=== PATIENT | female | born 1970 | race Caucasian/White ===

== ENCOUNTER 2020-11-02 05:32 | Observation (INO) | payer OTHER, SELFPAY ==
[2020-11-02] VITALS (24 sets, daily range): BP systolic 115–154; BP diastolic 58–100; PULSE 65–92; RESP 12–18; TEMP 36.4–43; O2SAT 90–98; BMI 25.0; BMI 23.7
--- NOTE | 2020-11-02 05:55 | CT_ITS ---
PROCEDURE: CT ABDOMEN PELVIS WO CON CLINICAL INDICATION: abd pain Nausea vomiting and right flank pain COMPARISON: No exams were available for comparison TECHNIQUE: Axial images obtained with sagittal and coronal reformats. All CT scans at the facility use one or more dose reduction, viz: automated exposure control, ma/kV adjustment per patient size (including targeted exams where dose is matched to indication, i.e. head), or iterative reconstruction technique. FINDINGS: LOWER THORAX: There is consolidation/volume loss in both lower lobes posteriorly. There is minimal pericardial thickening ABDOMEN & PELVIS: Prior cholecystectomy. The liver, spleen, adrenal glands, pancreas, and kidneys have an unremarkable appearance. No renal or ureteral calculi. There is a retro cecal appendix which is thickened extending superiorly posterior to the cecum and descending colon. At the tip of the appendix superiorly there is lobular soft tissue density measuring 2.2 by 2 cm. This could represent a small periappendiceal abscess. No free air is evident. There is thickening of the pericolic gutter and lateral conal fascia with suspected small amount fluid in these regions. There is a mild amount of retained colonic feces. There is colonic diverticulosis but no evidence of diverticulitis. No intestinal obstruction. Mild degenerative changes are present in the lumbar spine. IMPRESSION: 1. Acute appendicitis involving a retrocecal appendix. Lobular soft tissue density noted towards the tip of the appendix which may be due to small Heidy appendiceal abscess or phlegmonous change. 2. Small amount of fluid with thickening of the lateral conal fascia and the pericolic gutter. 3. Bibasilar consolidation/volume loss in the lower lobes posteriorly. Dictated by: Nakul Garcia MD 11/02/2020 06:49 Nakul Garcia MD in [place] 11/02/2020 06:49
[2020-11-02 06:16] LABS: Microscopic, Urine URINE MICROSCOPIC (MICROSCOPIC)
[2020-11-02 06:21] LABS: Basophils # 0.1 K/mm3 (0-0.2); Basophils % 0.6 % (0.1-2.0); Eosinophils # 0.2 K/mm3 (0.0-0.4); Eosinophils % 1.2 % (0.1-12.0); Hematocrit 39.9 % (37.0-47.0); Hemoglobin 13.1 g/dL (12.2-16.2); Lymphocytes # 0.9 K/mm3 (0.7-4.5); Lymphocytes % 6.8 % (10-50); Mean Corpuscular HGB Conc 32.8 g/dL (31.8-35.4); Mean Corpuscular Volume 94.5 fl (81-99); Mean Platelet Volume 8.5 fl (7.4-10.4); Monocytes # 0.5 K/mm3 (0.1-1.0); Monocytes % 4.1 % (1.7-9.3); Neutrophils # 11.1 K/mm3 (1.8-7.8); Neutrophils % 87.3 % (37.0-80.0); Platelet Count 277 K/mm3 (142-424); Red Blood Count 4.23 M/mm3 (4.20-5.40); Red Cell Distribution Width 14.9 % (11.5-17.5); White Blood Count 12.7 K/mm3 (4.8-10.8)
[2020-11-02 06:24] LABS: Appearance,Urine CLEAR (Clear); Bilirubin,Urine Negative (Negative); Blood, Urine Negative (Negative); Color,Urine YELLOW (Yellow); Glucose,Urine (UA) Negative (Negative); Ketones,Urine Negative (Negative); Leukocyte Esterase,Urine Negative (Negative); Nitrate,Urine Negative (Negative); PH,Urine 6.5 (5.0-8.5); Protein,Urine Negative (Negative); Specific Gravity, Urine <= 1.005 (1.005-1.030)
[2020-11-02 06:26] LABS: Urine Pregnancy, HCG Qual. Negative (Negative)
[2020-11-02 06:28] LABS: MANUAL DIFFERENTIAL MANUAL DIFFERENTIAL (MANUAL DIFF)
[2020-11-02 06:32] LABS: Alanine Aminotransferase 32 U/L (12-78); Albumin Level 4.4 g/dl (3.5-5.0); Albumin/Globulin Ratio 0.9 (1.1-1.8); Alkaline Phosphatase 74 U/L (38-126); Amylase 61 U/L (30-110); Anion Gap 8.9 mEq/L (5-15); Aspartate Amino Transferase 52 U/L (14-36); Blood Urea Nitrogen 15 mg/dl (7-17); Calcium 9.2 mg/dl (8.4-10.2); Carbon Dioxide 30 mmol/L (22.0-30.0); Chloride 103 mmol/L (98-107); Creatinine Clearance Estimated 108 mL/min (50-200); Estimated Glomerular Filt Rate 89 ml/min (>60); GFR (African American) 108 ML/MIN (>60); Globulin 4.9 g/dL (1.3-3.2); Glucose 100 mg/dl (74-100); Lipase 17 U/L (23-300); Potassium 4.9 mmoL/L (3.5-5.1); Sodium 137 mmol/L (136-145); Total Protein,Serum 9.3 g/dl (6.3-8.2)
--- NOTE | 2020-11-02 06:36 | HMH.EDUROGF ---
ED Disposition Clinical Impression: Appendicitis, acute Qualifiers: Acute appendicitis type: unspecified acute appendicitis type Qualified Code(s): K35.80 - Unspecified acute appendicitis Disposition: Admitted As Inpatient Condition on Discharge: Good Instructions: DI for Urinary Tract Infection (UTI), DI for Urinary Tract Infection in Children Referrals: Kojo Devine [Primary Care Provider] - - Critical Care Critical Care Time: No Attestation: On 11/02/20, the high probability of a clinically significant, sudden or life threatening deterioration of the following system(s) required my full and direct attention, intervention and personal management. The time I documented below is in addition to time spent performing reported procedures but includes the following listed in this critical care notation. Medical Decision Making - Medical Records Medical records reviewed: Yes: I reviewed the patient's medical records. - Chris Inquiry Pt receiving controlled substance: No Vital Signs: 11/02/20 05:43 Temperature 98.8 F Temperature Source Oral Pulse Rate [Right] 92 H Respiratory Rate 16 Blood Pressure [Right Arm] 154/94 H Blood Pressure Mean [Right Arm] 114 Blood Pressure Source [Right Arm] Automatic Cuff Blood Pressure Position [Right Arm] Sitting 02 Sat by Pulse Oximetry 96 Oxygen Delivery Method Room Air - Lab Data Lab results reviewed: Yes: I reviewed the patient's lab results. Lab Results 11/02/20 06:07: WBC 12.7 H, RBC 4.23, Hgb 13.1, Hct 39.9, MCV 94.5, MCH 31.0, MCHC 32.8, RDW 14.9, Plt Count 277, MPV 8.5, Neut % (Auto) 87.3 H, Lymph % (Auto) 6.8 L, [place] % (Auto) 4.1, Eos % (Auto) 1.2, Baso % (Auto) 0.6, Neut # (Auto) 11.1 H, Lymph # (Auto) 0.9, [place] # (Auto) 0.5, Eos # (Auto) 0.2, Baso # (Auto) 0.1 11/02/20 06:07: Sodium 137, Potassium 4.9, Chloride 103, Carbon Dioxide 30, Anion Gap 8.9, BUN 15, Creatinine 0.70, Estimated Creat Clear 108, Estimated GFR 89, Est GFR ( Amer) 108, Glucose 100, Calcium 9.2, Total Bilirubin 1.0, AST 52 H, ALT 32, Alkaline Phosphatase 74, C-Reactive Protein 171.3 H, Total Protein 9.3 H, Albumin 4.4, Globulin 4.9 H, Albumin/Globulin Ratio 0.9 L, Amylase 61, Lipase 17 L 11/02/20 06:07: ESR 57 H 11/02/20 06:07: Procalcitonin 0.167 11/02/20 06:07: Urine Color Yellow, Urine Appearance Clear, Urine pH 6.5, Ur Specific [place] <= 1.005, Urine Protein Negative, Urine Glucose (UA) Negative, Urine Ketones Negative, Urine Blood Negative, Urine Nitrate Negative, Urine Bilirubin Negative, Urine Urobilinogen 1.0, Ur Leukocyte Esterase Negative, Urine RBC Occasional, Urine WBC 3-5, Ur Squamous Epith Cells 3-5 11/02/20 06:07: Urine HCG, Qual Negative Result diagrams: 11/02/20 06:07 11/02/20 06:07 Orders (Tests/Meds): ED MEDICATIONS Generic Name Dose Route Start Last Admin Trade Name Freq PRN Reason Stop Dose Admin Sodium Chloride 1,000 mls @ 999 mls/hr 11/02/20 06:00 11/02/20 05:59 Sod Chlor 0.9% 1000ml Bag IV 11/02/20 07:00 999 mls/hr .Q1H1M HEAVEN Administration Discontinued Medications Generic Name Dose Route Start Last Admin Trade Name Freq PRN Reason Stop Dose Admin Ketorolac Tromethamine 30 mg 11/02/20 05:57 11/02/20 05:59 Ketorolac 30mg/Ml Vial IV 11/02/20 05:58 30 mg ONCE ONE Administration Ondansetron HCl 4 mg 11/02/20 05:57 11/02/20 05:59 Ondansetron 4mg/2ml Vial IV 11/02/20 05:58 4 mg ONCE ONE Administration ORDERS Category Date Time Status Complete Blood Count Auto Diff Stat Lab 11/02/20 06:07 Results Covid-19 IgG/IgM ([facility]) Stat Lab 11/02/20 06:54 Ordered - CT Data CT Scan: Abdomen, Pelvis Time Received: 06:[address] Reviewed: Yes: I have viewed the radiologist's interpretation Preliminary Findings: Abnormal (acute appendicitis) - Physician Consults Physician Consulted: allran Reason -: Admission Female Urogenital HPI - General Chief complaint: Urogenital-Female Stated complaint: N/V,stomach sore Chandana
[2020-11-02 06:37] LABS: C-Reactive Protein 171.3 mg/L (0-4)
[2020-11-02 06:45] LABS: RBC,Urine Occasional #/hpf (0-3)
--- NOTE | 2020-11-02 06:50 | PC.NURSE ---
paged cushion sewer surgeon @ this time
[2020-11-02 06:51] LABS: Procalcitonin 0.167 ng/mL (0.0-2.0)
[2020-11-02 07:04] LABS: Erythrocyte Sedimentation Rate 57 mm/hr (0-20)
--- NOTE | 2020-11-02 07:06 | PC.NURSE ---
on phone with dr diamond
[2020-11-02 07:09] LABS: Eosinophils % 1 % (0-3); Lymphocytes % 21 % (10-50); Monocytes % 4 % (2-9); Neutrophils % 74 % (42-76); RBC Morphology Normal; Total Cells Counted 100
[2020-11-02 07:10] LABS: Platelet Estimate Normal
--- NOTE | 2020-11-02 07:12 | PC.NURSE ---
House and Care Management aware of admission.
[2020-11-02 07:52] LABS: Coronavirus 19 IgG Antibody Negative (Negative); Coronavirus 19 IgM Antibody Negative (Negative)
--- NOTE | 2020-11-02 08:26 | PC.NURSE ---
Pt arrived to the floor at this time. via w/c
--- NOTE | 2020-11-02 09:04 | P.CONPHA_ITS ---
[facility] Pharmacy VTE Monitoring - Patient Demographics Admission date: 11/02/20 Report Date: 11/02/20 Time: 09:04 Allergies/Adverse Reactions: Patient Allergies No Known Allergies Allergy (Verified 11/02/20 05:53) Height: 1.68 m Weight: 66.763 kg Patient Problems: Current Active Problems Appendicitis, acute (Acute) - VTE Risk Labs: VTE Related Lab Results Hgb 13.1 g/dL (12.2-16.2) 11/02/20 06:07 Hct 39.9 % (37.0-47.0) 11/02/20 06:07 Plt Count 277 K/mm3 (142-424) 11/02/20 06:07 BUN 15 mg/dl (7-17) 11/02/20 06:07 Creatinine 0.70 mg/dl (0.52-1.04) 11/02/20 06:07 Estimated Creat Clear 108 mL/min (50-200) 11/02/20 06:07 Clinical Trial Participant: No - Prophylaxis VTE Prophylaxis Ordered?: Yes Types of VTE Prophylaxis: TEDS Knee High Location of Applied Device: Bilateral Lower Extremeties
--- NOTE | 2020-11-02 09:29 | HMH.GSHP ---
HPI HPI: Patient is a 50-year-old female from [place]. She states that on Sunday evening, 10/31/2020, she developed right lower quadrant and right flank pain and tenderness. She did have some associated dysuria. This persisted and progressed and she presented to the emergency department. She was seen and evaluated and found to have a mild leukocytosis. She has CT scan performed which revealed findings consistent with acute appendicitis with retrocecal appendix. Surgery was contacted and patient was admitted. [place] History I have reviewed the patient's past medical history: Yes Medical History: Denies:: Cancer, Diabetes Mellitus Type 1, Diabetes Mellitus Type 2, MRSA *Have you ever received a pneumonia vaccine?: No *Have you received a flu vaccine this season?: No Other Surgeries: Yes: Cholecystectomy, Amputation: No - *Social History Last grade of school completed: 11th or 12th Smoking Status: Current every day smoker Tobacco Type: cigarettes # Packs/Day (cigarettes): 1 Alcohol Intake: never *Occupational Status:: employed Housing: house Household Members: significant other, children *Travel in the last 8 weeks: None Family Hx:: Diabetes, Heart Attack, Hyperlipidemia, Hypertension, Stroke Review of Systems - Review of Systems Review of systems:: pertinent systems reviewed and negative unless documented below - *Neurologic Denies localized weakness Meds Home Medications Medication Instructions Recorded Confirmed Type No Known Home Medications 11/02/20 11/02/20 History Allergies Allergy/AdvReac Type Severity Reaction Status Date / Time No Known Allergies Allergy Verified 11/02/20 05:53 Exam Vital signs and Labs for Last 24 Hours: Temp Pulse Resp BP Pulse Ox 98.5 F 75 18 131/74 97 11/02/20 08:38 11/02/20 08:38 11/02/20 08:38 11/02/20 08:38 11/02/20 08:38 Laboratory Results - last 24 hr 11/02/20 06:07: WBC 12.7 H, RBC 4.23, Hgb 13.1, Hct 39.9, MCV 94.5, MCH 31.0, MCHC 32.8, RDW 14.9, Plt Count 277, MPV 8.5, Neut % (Auto) 87.3 H, Lymph % (Auto) 6.8 L, [place] % (Auto) 4.1, Eos % (Auto) 1.2, Baso % (Auto) 0.6, Neut # (Auto) 11.1 H, Lymph # (Auto) 0.9, [place] # (Auto) 0.5, Eos # (Auto) 0.2, Baso # (Auto) 0.1, Total Counted 100, Neutrophils % (Manual) 74, Lymphocytes % (Manual) 21, Monocytes % (Manual) 4, Eosinophils % (Manual) 1, Platelet Estimate Normal, RBC Morphology Normal 11/02/20 06:07: Sodium 137, Potassium 4.9, Chloride 103, Carbon Dioxide 30, Anion Gap 8.9, BUN 15, Creatinine 0.70, Estimated Creat Clear 108, Estimated GFR 89, Est GFR ( Amer) 108, Glucose 100, Calcium 9.2, Total Bilirubin 1.0, AST 52 H, ALT 32, Alkaline Phosphatase 74, C-Reactive Protein 171.3 H, Total Protein 9.3 H, Albumin 4.4, Globulin 4.9 H, Albumin/Globulin Ratio 0.9 L, Amylase 61, Lipase 17 L 11/02/20 06:07: ESR 57 H 11/02/20 06:07: Procalcitonin 0.167 11/02/20 06:07: Urine Color Yellow, Urine Appearance Clear, Urine pH 6.5, Ur Specific [place] <= 1.005, Urine Protein Negative, Urine Glucose (UA) Negative, Urine Ketones Negative, Urine Blood Negative, Urine Nitrate Negative, Urine Bilirubin Negative, Urine Urobilinogen 1.0, Ur Leukocyte Esterase Negative, Urine RBC Occasional, Urine WBC 3-5, Ur Squamous Epith Cells 3-5 11/02/20 06:07: Urine HCG, Qual Negative 11/02/20 06:07: SARS-CoV-2 IgG Ab (Rapid) Negative, SARS-CoV-2 IgM Ab (Rapid) Negative I & O for Last 24 hours: Intake & Output 10/30/20 10/31/20 11/01/20 11/02/20 11:59 11:59 11:59 11:59 Intake Total 1000 / 1000 Balance 1000 / 1000 Weight 147 lb 3 oz - *Routine HEENT Exam Head: Present: normocephalic Eye: Present: EOMI, PERRL ENT: Present: mucous membranes moist - *Routine Neck Exam Present: supple. Absent: lymphadenopathy - *Routine Respiratory Exam Present: CTA bilaterally - *Routine Cardiovascular Exam Present: RRR - *Routine Abdominal Exam Present: soft, normoactive bowel sounds, tenderness Comments:
--- NOTE | 2020-11-02 10:05 | PC.NURSE ---
called and spoke with preop who stated they would relay to md about patient request for pain medication. patient rating pain a 10/10, had a dose at 0740, not due again until 1140
--- NOTE | 2020-11-02 10:37 | PC.NURSE ---
preop called back stating dr. diamond did not want to give anything else for pain at this time. preop stated they would be up in 15-20 minutes to get patient
--- NOTE | 2020-11-02 13:14 | HMH.ANESCL ---
[facility] Anesthesia Checklist - Structural Data Admitted From: Inpatient Planned Operative Procedure/s: lap appy Consent for Planned Operative Procedure(s) Verified: Yes - Airway Assessment C-Spine Mobility Assessed: Yes TMJ Mobility Assessed: Yes Dentition: Poor Dentition - Neurological Assessment Level of Consciousness: Awake, Alert, Appropriate - Anesthesia Plan Anesthesia Risk discussed: Yes Anesthesia Plan: Verified ASA Class: II Anesthesia Type: General [facility] History I have reviewed the patient's past medical history: Yes Medical History: Denies:: Cancer, Diabetes Mellitus Type 1, Diabetes Mellitus Type 2, MRSA *Have you ever received a pneumonia vaccine?: No *Have you received a flu vaccine this season?: No Anesthesia experience/problems:: none Other Surgeries: Yes: Cholecystectomy, Amputation: No - *Social History Last grade of school completed: 11th or 12th Smoking Status: Current every day smoker Tobacco Type: cigarettes # Packs/Day (cigarettes): 1 Alcohol Intake: never Substance Use Type: denies use *Occupational Status:: employed Housing: house Household Members: significant other, children *Travel in the last 8 weeks: None Family Hx:: Diabetes, Heart Attack, Hyperlipidemia, Hypertension, Stroke
--- NOTE | 2020-11-02 14:25 | HMH.OPNOTE ---
Date of procedure: 11/02/20 Pre-op Diagnosis:: Acute appendicitis Post-op Diagnosis:: Same Procedure performed:: Laparoscopic appendectomy Surgeon:: José Miguel Akers MD SENIOR ACCOUNTS PAYABLE SPECIALIST:: Irvin Bernard Anesthesia: GETA Estimated blood loss (mL): 15 Clinical Note:: Patient is a 50-year-old female from [place]. She began experiencing right lower quadrant and right flank pain on 10/31/2020. This progressed and became more severe. She did have some associated urinary symptoms. She presented to the emergency department in the very assistant accounting manager hours of 11/02/2020. She was found to have a mild leukocytosis. She underwent CT scan which revealed the following findings: Acute appendicitis involving a retrocecal appendix. Lobular soft tissue density noted towards the tip of the appendix which may be due to small Heidy appendiceal abscess or phlegmonous change. Small amount of fluid with thickening of the lateral conal fascia and the pericolic gutter. Surgery was contacted and patient was admitted for inpatient management of acute appendicitis with planned appendectomy. Operative findings:: Patient had a severely inflamed retrocecal appendix. It was suppurative. There is fibrinopurulent exudate with phlegmonous change in the right paracolic region. There may have been walled off perforation of appendix. Appendix was densely adherent to the right colon. Operative note:: Patient was taken to the operating room. She was given preoperative intravenous antibiotics. She was placed in a supine position. Hyde catheter was placed. Abdomen was prepped and draped in the standard surgical fashion. Infraumbilical incision was made and her previous laparoscopy scar. While performing abdominal wall lift Veress needle was inserted. CO2 pneumoperitoneum was achieved to 15 mmHg. 12 mm optical trocar was inserted at the umbilicus. Intraperitoneal contents were visualized. She was found to have significant adhesions in the pelvis from previous obstetric surgeries. There was evidence of cloudy fluid along the right paracolic gutter with some inflammatory exudate and fibrinopurulent exudate consistent with established peritonitis. 5 mm trocar was inserted in the lower abdomen avoiding the adhesions. Additional 5 mm trocar was inserted in the right upper abdomen. 5 mm 30 degree laparoscope was inserted through the right upper abdominal trocar site. Initial identification of the appendix was difficult. However ultimately the tip of the appendix was identified in the retrocecal location. The peritoneal attachments were divided laterally as the appendix was retrocecal. This mobilized the cecum somewhat medially. There was intense inflammatory response. Peritoneum was thickened. Careful dissection was carried out dissecting free the appendix from the retroperitoneum, lateral sidewall, and ascending colon. This was prolonged difficult dissection. The base of the appendix actually appeared relatively uninflamed. Mesoappendix was divided with SATISH ultrasonic harmonic sid. Dissection was carried down to the appendiceal base. The appendiceal artery was cauterized with SATISH ultrasonic robotic sid and divided. Dissection was carried down to the appendiceal base which was relatively uninflamed. The appendix was divided at its base with an endoscopic BAO linear cutting stapling device. The appendix was placed within an Endo Catch retrieval device and removed from the peritoneal cavity via the umbilical trocar site. Surgical dissection region was inspected. Thorough irrigation was performed. Irrigation was performed in the right paracolic gutter, pelvis, and perihepatic space. There was no evidence of any obvious colon Injury. There appeared to be good hemostasis. Trochars were then removed and CO2 pneumoperitoneum was evacuated. Fascia at the umbilicus was closed with several interrupted 0 Vicryl sutures. Local anesthetic was infiltrated. Skin incisions were clos
--- NOTE | 2020-11-02 14:33 | HMH.ANESI ---
[facility] Anesthesia Record Part I Intake, IV Amount: 1,500 Estimated blood loss (mL): 0 Urine output (mL): 200 Blood Pressure: 149/100 SaO2: 94 Pulse Rate: 87 Respiratory Rate: 12 Temperature: 99.5 F Patient is:: Awake, Stable Stable to PACU at:: 14:30
--- NOTE | 2020-11-02 22:02 | P.PN_ITS ---
[facility] Anesthesia Record Part II Discharge Time: 15:00 Destination: Medical Surgical Department PACU nurse assessment reviewed?: Yes Patient Condition:: Good Anesthesia Complications:: None Swallowing reflex intact?: Yes Cyanosis?: No Blood Pressure: 129/76 Pulse Rate: 71 Temperature: 97.6 F Mental Status: Alert & Oriented Pain level:: 0 Nausea and/or vomitting:: None Intake, IV Amount: 0
[2020-11-03] VITALS (9 sets, daily range): BP systolic 96–150; BP diastolic 50–79; PULSE 54–72; RESP 14–18; TEMP 36.7–36.8; O2SAT 91–96; BMI 24.0
--- NOTE | 2020-11-03 04:02 | PC.NURSE ---
PATIENT A&O X4, LUNGS CLEAR, PULSES EQUAL. PATIENT INCISION SITES C/D/I. PATIENT UP TO BATHROOM, TOLERATED WELL. PATIENT HAS TOLERATED CLEAR LIQUID DIET. NO NEW CONCERNS AT THIS TIME.
--- NOTE | 2020-11-03 07:06 | HMH.GSPN ---
Subjective Patient reports: feels better Progress Note: A&P Assessment and Plan for All Diagnoses:: Check CBC. Continue antibiotics. Exam Vital signs and Labs for Last 24 Hours: Temp Pulse Resp BP Pulse Ox 98.1 F 72 16 96/50 L 91 L 11/03/20 03:14 11/03/20 03:14 11/03/20 03:14 11/03/20 03:14 11/03/20 03:14 Laboratory Results - last 24 hr 11/02/20 06:07: Total Counted 100, Neutrophils % (Manual) 74, Lymphocytes % (Manual) 21, Monocytes % (Manual) 4, Eosinophils % (Manual) 1, Platelet Estimate Normal, RBC Morphology Normal 11/02/20 06:07: SARS-CoV-2 IgG Ab (Rapid) Negative, SARS-CoV-2 IgM Ab (Rapid) Negative I & O for Last 24 hours: Intake & Output 10/31/20 11/01/20 11/02/20 11/03/20 11:59 11:59 11:59 11:59 Intake Total 1000 / 1000 1740 / 1740 Balance 1000 / 1000 1740 / 1740 Weight 147 lb 3 oz 149 lb 6.269 oz - *Routine Abdominal Exam Present: soft Comments: Dressings dry.
[2020-11-03 07:45] LABS: Basophils % 0.1 % (0.1-2.0); Hematocrit 35.9 % (37.0-47.0); Hemoglobin 11.4 g/dL (12.2-16.2); Lymphocytes # 0.6 K/mm3 (0.7-4.5); Lymphocytes % 4.9 % (10-50); Mean Corpuscular HGB Conc 31.7 g/dL (31.8-35.4); Mean Corpuscular Hemoglobin 31.2 pg (27.0-31.2); Mean Corpuscular Volume 98.5 fl (81-99); Mean Platelet Volume 8.2 fl (7.4-10.4); Monocytes # 0.3 K/mm3 (0.1-1.0); Monocytes % 2.6 % (1.7-9.3); Neutrophils # 11.7 K/mm3 (1.8-7.8); Neutrophils % 92.5 % (37.0-80.0); Platelet Count 260 K/mm3 (142-424); Red Blood Count 3.64 M/mm3 (4.20-5.40); Red Cell Distribution Width 15.2 % (11.5-17.5); White Blood Count 12.6 K/mm3 (4.8-10.8)
[2020-11-03 07:48] LABS: MANUAL DIFFERENTIAL MANUAL DIFFERENTIAL (MANUAL DIFF)
[2020-11-03 07:56] LABS: Chloride 107 mmol/L (98-107); Potassium 4.3 mmoL/L (3.5-5.1); Sodium 141 mmol/L (136-145)
[2020-11-03 07:59] LABS: Anion Gap 10.3 mEq/L (5-15); Blood Urea Nitrogen 16 mg/dl (7-17); Carbon Dioxide 28 mmol/L (22.0-30.0); Creatinine Clearance Estimated 91 mL/min (50-200); Estimated Glomerular Filt Rate 76 ml/min (>60); GFR (African American) 92 ML/MIN (>60)
[2020-11-03 08:00] LABS: Calcium 8.9 mg/dl (8.4-10.2); Glucose 107 mg/dl (74-100)
[2020-11-03 08:37] LABS: Lymphocytes % 12 % (10-50); Monocytes % 4 % (2-9); Neutrophils % 83 % (42-76); Platelet Estimate Normal; RBC Morphology Normal; Total Cells Counted 100
--- NOTE | 2020-11-03 13:24 | PC.NURSE ---
CALLED LINDY'S OFFICE TO SEE IF PT COULD GET A NICOTINE PATCH AND SOMETHING FOR HEARTBURN. AWAITING CALL BACK.
--- NOTE | 2020-11-03 14:13 | PC.NURSE ---
A&OX4. PT HAS TOLERATED ROOM AIR WELL THROUGHOUT SHIFT. RESPIRATIONS REGULAR AND UNLABORED. LUNG SOUNDS BILATERALLY CLEAR. NO COUGH NOTED. ACTIVE BOWEL SOUNDS HEARD IN ALL 4 QUADRANTS. SOFT AND TENDER ABDOMEN. 3 INCISIONS NOTED TO ABDOMEN. DRESSING NEAR UMBILICAL AREA IS NOTED WITH A PIN DROP OF SCANT DRAINAGE. WILL CONTINUE TO MONITOR. OTHER 2 DRESSINGS ARE CDI. NO BM THUS FAR BUT PT REPORTS FLATUS BEING PASSED. PT AMBULATES TO RESTROOM W STANDBY ASSIST. PT REFUSED TEDS. NS INFUSING AT 100ML/HR. IV WENT BAD IN R FOREARM AND A NEW ONE WAS INSERTED IN HER R HAND. PT HAS REPORTED PAIN ONCE THUS FAR AND RECEIVED PAIN MEDS PER JAN. NO REPORTS OF NAUSEA THUS FAR. DAUGHTER HAS REMAINED AT BEDSIDE. NO EDEMA NOTED. HAND SENIOR SALES MANAGER EQUAL. +2 PULSES NOTED THROUGHOUT. PT IS CURRENTLY UP TO THE CHAIR WITH CALL LIGHT WITHIN REACH. BED IN LOWEST POSITION. VSS. WILL CONTINUE TO MONITOR.
--- NOTE | 2020-11-03 14:49 | PC.NURSE ---
CALLED LINDY'S OFFICE TO MAKE HIM AWARE OF PT NOT RECEIVING ANY ANTIBIOTICS SINCE SURGERY. AWAITING PHONE CALL.
--- NOTE | 2020-11-03 15:34 | PC.NURSE ---
CALLED [facility] OFFICE TO FOLLOW UP WIT PREVIOUS PHONE CALL ABOUT ANTIBIOTICS ON PT. THEY SAID UNISON 3GRAMS EVERY 6 HOURS IV NEEDS TO BE GIVEN. ORDER REPEATED BACK, WROTE, AND FAXED TO PHARMACY.
--- NOTE | 2020-11-03 18:37 | PC.NURSE ---
pt aware of new policy for visitation starting tomorrow.
[2020-11-04 03:27] VITALS: BP 138/76; PULSE 68; RESP 14; TEMP 36.6; O2SAT 95
--- NOTE | 2020-11-04 03:51 | PC.NURSE ---
Pt is a&ox4. Lung sounds remain clear and pt remains on RA with appropriate o2 sats. Bowel sounds active in all 4 quads, abdomen is soft and tender. No BM noted this shift. Pt has c/o abdominal pain x2 this shift and was medicated per MAR. Daughter has remained at bedside. No other acute changes or complaints at this time, will continue to monitor.
[2020-11-04 04:59] VITALS: BMI 259025.5
[2020-11-04 08:00] VITALS: BP 137/81; PULSE 69; RESP 18; TEMP 36.8; O2SAT 94
--- NOTE | 2020-11-04 08:22 | HMH.GSPN ---
Subjective Patient reports: feels better Progress Note: A&P Assessment and Plan for All Diagnoses:: Likely DC home on oral antibiotics. Check CBC. Exam Vital signs and Labs for Last 24 Hours: Temp Pulse Resp BP Pulse Ox 97.8 F 68 14 138/76 95 11/04/20 03:27 11/04/20 03:27 11/04/20 03:27 11/04/20 03:27 11/04/20 03:27 Laboratory Results - last 24 hr 11/03/20 07:18: Total Counted 100, Neutrophils % (Manual) 83 H, Band Neutrophils % 1.0, Lymphocytes % (Manual) 12, Monocytes % (Manual) 4, Platelet Estimate Normal, RBC Morphology Normal I & O for Last 24 hours: Intake & Output 11/01/20 11/02/20 11/03/20 11/04/20 11:59 11:59 11:59 11:59 Intake Total 1000 / 1000 2220 / 2220 3827 / 3827 Balance 1000 / 1000 2220 / 2220 3827 / 3827 Weight 147 lb 3 oz 149 lb 6.269 oz 160 lb 8 oz - *Routine Abdominal Exam Present: soft
[2020-11-04 08:38] LABS: Basophils % 0.4 % (0.1-2.0); Eosinophils # 0.2 K/mm3 (0.0-0.4); Hematocrit 38.1 % (37.0-47.0); Hemoglobin 12.1 g/dL (12.2-16.2); Lymphocytes # 1.4 K/mm3 (0.7-4.5); Lymphocytes % 18.6 % (10-50); Mean Corpuscular HGB Conc 31.7 g/dL (31.8-35.4); Mean Corpuscular Hemoglobin 30.9 pg (27.0-31.2); Mean Corpuscular Volume 97.7 fl (81-99); Mean Platelet Volume 7.7 fl (7.4-10.4); Monocytes # 0.3 K/mm3 (0.1-1.0); Monocytes % 3.3 % (1.7-9.3); Neutrophils # 5.8 K/mm3 (1.8-7.8); Neutrophils % 75.6 % (37.0-80.0); Platelet Count 270 K/mm3 (142-424); Red Cell Distribution Width 15.3 % (11.5-17.5); White Blood Count 7.6 K/mm3 (4.8-10.8)
--- NOTE | 2020-11-04 08:46 | [facility].DCSUM ---
General - General Admission date:: 11/02/20 Discharge date: 11/04/20 HPI HPI: Patient is a 50-year-old female from [place]. She states that on Sunday evening, 10/31/2020, she developed right lower quadrant and right flank pain and tenderness. She did have some associated dysuria. This persisted and progressed and she presented to the emergency department. She was seen and evaluated and found to have a mild leukocytosis. She has CT scan performed which revealed findings consistent with acute appendicitis with retrocecal appendix. Surgery was contacted and patient was admitted. Hospital Course Hospital Course: Patient was admitted to the medical surgical floor. Several hours after admission she was taken to the operating room at which time she underwent laparoscopic appendectomy. She was found to have a severely inflamed retrocecal suppurative appendix. This was able to be surgically taken care of laparoscopically despite the amount of inflammation. Please see operative dictation for complete details. She was admitted postoperatively for convalescence and recovery. She was given a clear liquid diet initially. The following day patient had requested nicotine patch due to her smoking history. She was given 14 mg nicotine patch. She did feel better. She was having some heartburn which was felt to be potentially from ileus. She was given Protonix. She was able to be advanced to a full liquid diet. She did have persistent leukocytosis on postoperative day #1 therefore she remained an inpatient. The following morning, on postoperative day #2, she felt much better. She was tolerating full liquid diet without issue. Heartburn had resolved. She underwent repeat CBC which revealed normalization of blood counts of 7000. She had remained afebrile throughout her hospital course. Arrangements were made for discharge home on postoperative day #2 with continuation of antibiotics orally. She was given a 5-day course of Augmentin. Objective Vital signs: Temp Pulse Resp BP Pulse Ox 98.2 F 69 18 137/81 94 L 11/04/20 08:00 11/04/20 08:00 11/04/20 08:00 11/04/20 08:00 11/04/20 08:00 Results Labs on day of discharge: Labs from last 24 hours 11/04/20 08:25 WBC 7.6 D RBC 3.90 L Hgb 12.1 L Hct 38.1 MCV 97.7 MCH 30.9 MCHC 31.7 L RDW 15.3 Plt Count 270 MPV 7.7 Neut % (Auto) 75.6 Lymph % (Auto) 18.6 [place] % (Auto) 3.3 Eos % (Auto) 2.0 Baso % (Auto) 0.4 Neut # (Auto) 5.8 Lymph # (Auto) 1.4 [place] # (Auto) 0.3 Eos # (Auto) 0.2 Baso # (Auto) 0.0 Discharge Plan - Patient Discharge Instructions ACTIVITY: No heavy lifting DIET: advance to your usual diet Patient Instructions: DI for Appendicitis -- Adult, DI for an Appendectomy, DI for Surgical Site Infection, Appendectomy -- Laparoscopic Surgery, Catheter-associated Urinary Tract Infection - Follow up Plan Follow up with: José Miguel Akers MD [Staff Physician] - Disposition: Home, Self-Intermediate Medications: Home Medications Medication Instructions Recorded Confirmed Type Amoxicillin/Potassium Clav 1 tab PO Q12H #10 tab 11/04/20 Rx [Augmentin 875-125 Tablet] Hydrocod/Acet 5/325 mg [[place] 1 - 2 tab PO Q6HP PRN #17 tab 20 Rx 5/325mg tablet] Prescriptions/Medication Reconciliation: New Amoxicillin/Potassium Clav [Augmentin 875-125 Tablet] 1 tab PO Q12H #10 tab Hydrocod/Acet 5/325 mg [[place] 5/325mg tablet] 1 - 2 tab PO Q6HP PRN #17 tab PRN Reason: Moderate Pain - Problem Reconciliation Problems Reviewed?: Yes
== END 2020-11-04 11:03 | disposition home or self-care (01) ==
LOC: ER 07:07 → 2ND 07:18
PROVIDERS: Admitting Provider Surgery; Emergency Provider Emergency Medicine; PCP Family Medicine; Visit Provider Surgery
PROC: 0DTJ4ZZ Resection of Appendix, Percutaneous Endoscopic Approach (ICD-10-PCS; CPT 44970; principal; 2020-11-02 11:30)
DX: K35.890 Other acute appendicitis without perforation or gangrene (principal); Z72.0 Tobacco use
CPT/HCPCS: 44970; 36415; 74176; 80048; 80053; 81001; 81025; 82150; 83690; 84145; 85007; 85025; 85651; 86140; 86328; 96365; 96375; 99284; G0378; J2405; J2710